=== PATIENT | female | born 1990 | race Caucasian/White ===

== ENCOUNTER 2020-10-30 13:55 | Emergency (ER) | payer SELFPAY ==
[~2020-10-30] VITALS: Ht 157.5 cm; Wt 61.2 kg
[2020-10-30 14:17] VITALS: BP_SYST 138
--- NOTE | 2020-10-30 14:17 | NUR ---
TRAIGED IN TENT
[2020-10-30] MEDS ORDERED: ONDANSETRON 4 MG ODT TAB PO ONE (14:30)
--- NOTE | 2020-10-30 14:50 | NUR ---
DR. ROBIN WITH PT
[2020-10-30] MEDS ORDERED: KETOROLAC TROMETHAMINE 60 MG/2 ML VIAL IM ONE ×2 (15:00→15:03)
[2020-10-30 15:35] VITALS: BP_SYST 138
--- NOTE | 2020-10-30 15:35 | NUR ---
Patient given written and verbal discharge instructions and verbalizes understanding. ER MD discussed with patient the results and treatment provided. Patient in stable condition. ID arm band removed. Rx of ZOFRAN, MOTRIN, NORCO given. Patient educated on pain management and to follow up with PMD. Pain Scale 0/10 Opportunity for questions provided and answered. Medication side effect fact sheet provided.
== END 2020-10-30 15:35 | disposition home or self-care (01) ==
LOC: SED 13:55
DX: U07.1 COVID-19 (principal); R51.9 Headache, unspecified; R11.0 Nausea
CPT/HCPCS: 81002; 81025; 96372; 99283; J1885; Q0162